=== PATIENT | male | born 1950 | race Caucasian/White ===

== ENCOUNTER → 2023-08-18 19:57 | Outpatient (REF) | payer OTHER, SELFPAY | LOC: MRI 19:57 | PROVIDERS: ATTENDING PHYSICIAN Internal Medicine Critical Care Medicine; FAMILY PHYSICIAN Family Medicine | DX: C79.51 Secondary malignant neoplasm of bone (principal); C34.91 Malignant neoplasm of unspecified part of right bronchus or lung | CPT/HCPCS: 70553; A9575 ==

== ENCOUNTER 2023-08-31 04:52 | Inpatient (IN) | payer OTHER, SELFPAY ==
[2023-08-23 11:54] VITALS: BMI 37.2
[2023-08-23 12:47] LABS: Urine Albumin Negative (Neg - Trace); Urine Bilirubin Negative (Negative); Urine Character Clear (Clear); Urine Color Yellow; Urine Glucose Negative (Negative); Urine Ketone Negative (Negative); Urine Leukocyte Negative (Negative); Urine Nitrite Negative (Negative); Urine Occult Blood Negative (Negative); Urine Urobilinogen Negative (Neg - 1+)
[2023-08-23 12:49] LABS: % Basophils 0.7 % (0-2); % Eosinophils 3.5 % (0-6); % Immature Granulocytes 0.2 % (0-0.5); % Lymphocytes 15.4 % (20.5-51.1); % Monocytes 5.8 % (1.7-9.3); % Neutrophils 74.4 % (42.2-75.2); Absolute Eosinophils 0.2 10^3/uL (0-0.7); Absolute Lymphocytes 0.9 10^3/uL (1.2-3.4); Absolute Monocytes 0.3 10^3/uL (0.1-0.6); Absolute Neutrophils 4.3 10^3/uL (1.4-6.5); Hematocrit 41.1 % (39.0-52.0); Hemoglobin 13.7 g/dL (13.0-18.0); Mean Corp Hgb Conc. 33.3 g/dL (33.0-37.0); Mean Corpuscular Hgb 30.9 pg (27.0-31.0); Mean Corpuscular Volume 92.8 fL (80.0-94.0); Mean Platelet Volume 9.4 fL (7.4-10.4); Nucleated Red Blood Cells % 0 % (-); Platelet Count 267 10^3/uL (130-400); Red Blood Cell Count 4.43 10^6/uL (4.70-6.10); Red Cell Dist. Width 13.2 % (11.5-14.5); White Blood Cell Count 5.7 10^3/uL (4.8-10.8)
[2023-08-23 12:58] LABS: ALT (SGPT) 44 U/L (0-50); AST (SGOT) 36 U/L (17-59); Albumin 4.2 g/dl (3.5-5.0); Alkaline Phosphatase 72 U/L (38-126); Blood Urea Nitrogen 16 mg/dl (9-20); Carbon Dioxide 28 mmol/L (22-30); Chloride 105 mmol/L (98-107); Direct Bilirubin 0.4 mg/dl (0.0-0.4); Estimated Creatinine Clearance 99 ml/min; Glucose 111 mg/dl (70-99); Potassium 4.2 mmol/L (3.5-5.1); Sodium 136 mmol/L (135-145); Total Bilirubin 0.7 mg/dl (0.2-1.3); Total Protein 6.8 g/dl (6.3-8.2); eGFR > 60.00
[2023-08-23 13:01] LABS: INR 0.99; PT 12.9 Sec (11.4-14.6)
[2023-08-23 13:02] LABS: APTT 34.7 Sec (23.4-35.0)
--- NOTE | 2023-08-23 13:15 | CM ---
Met with Mr and Mrs. Marc in [facility]. He states prior to admission he resides with his spouse in a two story home with twelve steps to enter. He states he has a one level living arrangement. He states prior to admission he was independent with
ambulation and adls. He states he does not have any DME in the home. He states he has a prescription plan and uses [facility]. He states his spouse will be home to assist in his care if needed. The discharge plan is to return home with his
spouse and a home visit by the Cardiothoracic Transitional Care Nurse when medically stable.
We reviewed pre-op and post-op routines. We reviewed the shower instructions. He has the soap, written instructions and the Thoracic Surgery Educational Booklet. We also reviewed restrictions including driving and lifting restrictions. We
discussed a home visit by the Cardiothoracic Transitional Care Nurse. He is agreeable to a home visit. The plan is for robotic assisted right lower lobe lobectomy on Tuesday08/31/23.
[2023-08-23 14:07] LABS: Glycohemoglobin (HgbA1c) 5.9 % (4.0-5.6)
[2023-08-31] VITALS (12 sets, daily range): BP systolic 84–163; BP diastolic 46–84; BMI 36.1
--- NOTE | 2023-08-31 06:40 | W.CVOR.SURPR ---
CVOR Surgeon Immed Pre Op
-
I have examined this patient prior to performance of the scheduled procedure.
The patient's condition is unchanged from the time of the dictated/written History and
Physical and the patient is able to undergo the scheduled procedure.
RATS RLL + LN Dissection
--- NOTE | 2023-08-31 07:31 | PTCARENOTE ---
Pt taken to CVOR in bed, SCD machine and monitor sent with patient.
[2023-08-31 08:14] LABS: Urine Albumin Trace (Neg - Trace); Urine Bilirubin Negative (Negative); Urine Character Clear (Clear); Urine Color Yellow; Urine Glucose Negative (Negative); Urine Ketone 1+ (Negative); Urine Leukocyte Negative (Negative); Urine Nitrite Negative (Negative); Urine Occult Blood Negative (Negative); Urine Specific Gravity 1.025 (<1.030); Urine Urobilinogen Negative (Neg - 1+)
--- NOTE | 2023-08-31 10:52 | CM ---
Chart reviewed. Patient is independent of ADLS, lives with his in a 2 STH, 1st floor set up, 12 TORSTEN, 0 DME. Plan is for the patient to return home with CT Transitional RN. CM to follow
--- NOTE | 2023-08-31 11:14 | W.PN.CT.SURG ---
Addendum entered and electronically signed by Dat Adams MD 08/31/23 12:06:
Addendum:
Procedure should read: 2. Radical lymph node dissection
Original Note:
CT Surgery Operative Note
-
THORACIC SURGERY OPERATIVE REPORT
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
Postoperative Diagnosis: Same
Procedure(s) Performed:
1. Robotic assisted thoracic surgery (RATS) right lower lobectomy
2. Chronic lymph node dissection
3. Intercostal nerve block interspaces 4 through 8 with bupivacaine mixture
Date of Surgery: 08/31/2023
Comorbidities:
1. Adenocarcinoma of the right lower lobe
2. Hypertension
3. History of prostate adenocarcinoma, stage II
4. Emphysema
5. Former tobacco abuse, current secondhand smoke from spouse
6. Diverticulosis
7. History of Lyme disease
8. Osteoarthritis
Attending Surgeon: Dat Adams MD, MS
Assistants: Criselda Pimentel PA-C (present and necessary to pier master assistant, exchanging robotic instruments, retraction, suction, exposure, suture management, and wound closure under my direction)
Anesthesiology: Lauri Ramirez MD and Maki Fermin CRNA
Scrub and Circulating RNs: Yousif Domingo RN, Marilin Rodarte RN
Anesthesia: Dual Lumen GETA
EBL: 100 cc
Products: None
Indication(s) for Procedures: This is a 72-year-old male with known right lower lobe mass who underwent screening CT imaging due to history of smoking. The CT findings from August 03 demonstrated a 2.1 x 1.9 x 1.9 cm mass that had increased in
size in the superior aspect of the right lower lobe. Follow-up biopsy demonstrated invasive adenocarcinoma. PET/CT imaging did not show any obvious metachronous lesions. EBUS evaluation of his mediastinum was negative for metastatic disease.
PFTs were acceptable for s low lobectomy. He was counseled for surgery and accepted the risks so we proceeded.
Findings: There are no obvious intra thoracic lesions concerning for metastatic disease. He had well-developed oblique and horizontal fissures. Multiple lymph nodes were sampled from around the hilum. Clamp tests of the right lower lobe bronchus
with test inflation demonstrated unobstructed flow to the right upper and right middle lobes. Saline infiltration and bubble test was negative for any obvious leaks. No pro gel was used in this case. There was good tidal volumes at the conclusion
of the case and only a very minor intermittent air leak while still on the ventilator.
Specimen(s):
Station 9, x 2 nodes
Station 10, x 6 nodes
Station 11, x 4 nodes
Station 2/4 for symptoms of fat packet is no obvious lymph nodes were found or identified
Station 7, x 1 nodes
Right lower lobe
Description of Procedure: The patient was taken to the operating room. Induction via general anesthesia with endotracheal intubation was performed and peripheral venous access and arterial monitoring were inserted. Their identity and procedure to be
performed were verified and they were positioned with the right side up on the operating table. The patient was then prepped and draped in a sterile fashion. A preoperative time-out was performed with all members of the team present. A Veress
needle was used to insufflate the chest after isolating the lung. An 8 mm port was placed in the midaxillary line at approximately the eighth intercostal space and confirmed to be intrathoracic without significant pulmonary injury. The chest was
surveyed for any evidence of metastatic disease. Patient tolerate insufflation without complication. 2 additional 12 mm trocars were placed on either side under camera guidance and a third 8 mm trocar was placed along the back. A 12 mm research lab assistant
port was placed in the 11th intercostal space above the insertion of the diaphragm. An intercostal nerve block was performed at intercostal spaces 4 through 8.
The thoracic cavity was inspected for evidence of metastatic disease. None was observed. We started with mobilization of the inferior pulmonary ligament. We worked our way clockwise dissecting out the hilum and harvest any lymph nodes identified.
The pulmonary arteries and veins leading to the right lower lobe were identified and skeletonized. They were sequentially divided with a white load stapler. The little parenchyma between the RLL and RUL and RLL and RML were divided with green load
jessie. This freed up the hilum leaving just the bronchus which was dissected distally to ensure the branch to the RML was uninvolved in the staple line. The RLL vein was isolated and divided with a white load stapler. The RLL was then elevated
anteriorly leaving just the bronchus. I clamped the bronchus and performed a test inflation which demonstrated unobstructed flow into the remaining right upper and middle lobe. The specimen was displaced toward the apex while a chest tube was
inserted and placed laterally towards the apex. A bubble test was performed to identify any air leaks, none were found so no pro gel was used. The right lower lobe was then placed into a specimen bag and extracted from the chest cavity. After
confirming hemostasis, the lung was fully inflated and all ports were removed. Incisions were closed in 3 layers including the fascia, dermal, and epidermis. Additional local anesthesia was injected into all incision sites. The skin wound was
cleansed and sealed with Dermabond glue.
All instrument, sponge, and needle counts were confirmed to be correct x 2 at the end of the operation. The patient was transferred to the cardiac intensive care unit extubated in critical but stable condition.
I, Dr. Dat Adams, was present, scrubbed for, and performed all critical elements of this procedure.
Dat Adams MD, MS
Cardiothoracic Surgeon
[facility]
This operative dictation was created using the [employer] dictation system. Please excuse any grammatical, typographical, or 'sound alike' errors
[2023-08-31] MEDS: DILAUDID 0.25 MG IV ×2 (11:43→12:00)
[2023-08-31 11:53] LABS: Hematocrit 38.2 % (39.0-52.0); Hemoglobin 12.6 g/dL (13.0-18.0)
[2023-08-31 11:59] LABS: INR 1.07; PT 13.9 Sec (11.4-14.6)
[2023-08-31 12:00] LABS: APTT 31.2 Sec (23.4-35.0)
--- NOTE | 2023-08-31 12:15 | PTCARENOTE ---
Received pt from [employer]. AAO x 3 sitting up in bed. SR on monitor. Room air 98%, pt however feels like he is 'not getting deep enough breaths' 2 L NC placed for comfort. pulse ox 98 - 100%. IS to 750. Rt lateral chest tube intact with
positive air leak noted. Chest tube to - 20 cm suction. No crepitus noted. 4 surgical stab sites c,d,i, well approximated, surgical glue intact. Pulses palpable . RT radial Art line transducing, line removed at this time per CT PA order.
Hemostasis achieved w/ manual pressure. at bedside. will monitor.
--- NOTE | 2023-08-31 13:21 | CON.INTV ---
Consultation
Consultation Request
Date/Time Consultation Requested: 08/31
Date/Time Consultation Performed: 08/31
Reason for Consultation: Postoperative robotic assisted thoracic surgery
Medical History
-
History of Present Illness:
History obtained from the chart, patient and at bedside. Outpatient records also reviewed. Pleasant 72-year-old male with history of prostate cancer 2020 status post radiation and Lupron therapy, presents with CT chest abnormality. Patient
does have chronic bronchitic symptoms. Bronchoscopy 07/27/2023 revealed invasive adenocarcinoma, moderately differentiated. No enlarged lymph nodes were identified. Workup revealed normal lung function, no evidence of extrapulmonary or adenopathy
abnormality on the PET scan, normal brain MRI. Patient underwent robotic assisted thoracic resection of right lower lobe 08/31/2023 without complication.
Presently patient is conversant, mild chest tube discomfort but otherwise without nausea, abdominal pain, shortness of breath. at bedside.
.
PMH: Emphysema, chronic bronchitis, prostate cancer diagnosed 2020, hypertension. History of left knee surgery 1967
Past Medical History
Past Medical History: None (See above)
Past Surgical History: None (See above)
Social History
Tobacco: Former Smoker (Quit at age 46, 19-lzgq-mixr history.)
Alcohol: Occasional
Drug: None
Personal:
Living: With Family
Employment: Retired (Office work)
Environmental Exposures: Born in [place], also lived in [place] and [place]
Family History
Family History: Other (Brother from carbon monoxide poisoning. Brother from gunshot wound/suicide. Mother from heart disease age 90, father from heart failure/emphysema age 69. No children)
Allergies / Home Medications
Allergies
Allergy/AdvReac Type Severity Reaction Status Date / Time
No Known Allergies Allergy Verified 08/31/23 05:08
Home Medications
Medication Instructions Recorded Confirmed Last Taken Type
amlodipine 5 mg tablet 5 mg PO DAILY 07/25/23 08/31/23 08/30/23 09:00 History
budesonide-formoterol HFA 160 2 puff inhalation BID 07/25/23 08/31/23 08/30/23 21:00 History
mcg-4.5 mcg/actuation aerosol
inhaler (Symbicort)
leuprolide acetate (6 month) 45 mg 45 mg IM [id number] 07/25/23 08/31/23 08/19/23 History
intramuscular syringe kit (Lupron
Depot)
lisinopril 20 mg tablet 20 mg PO DAILY 07/25/23 08/31/23 08/30/23 09:00 History
zinc 4 mg PO DAILY 07/25/23 08/31/23 08/30/23 09:00 History
Review of Systems
-
All other systems: Negative unless noted
Vitals / Labs / Diagnostic Testing
Vital Signs
Temp Pulse Resp BP Pulse Ox
98.2 F 77 14 108/60 98
08/31/23 12:59 08/31/23 12:59 08/31/23 12:59 08/31/23 12:00 08/31/23 13:01
Lab Data
08/31/23 11:47
08/23/23 12:12
Laboratory Results
08/31/23
11:47
PT 13.9
INR 1.07
APTT 31.2
Diagnostic Testing:
Physical Exam
-
HEENT: Normocephalic, Anicteric and Other (A-line, chest tube)
Cardiovascular: S1/S2, Regular Rhythm, Murmur (n), Peripheral Edema (n) and Calf Tenderness (n)
Respiratory: Wheeze (n), Rales (n), Rhonchi (n), Non-Labored Respirations and Other (Decreased, mild splinting)
GI: Soft, Non Distended and Non Tender
Neurology: Awake, Alert and No Motor Deficits (Moves all extremities)
Skin: Good Color (No clubbing, cyanosis)
General: Comfortable
Assessment
-
72-year-old male with 18-irsv-fmbq history of smoking, quit 1997, mild emphysema per imaging, identified as having 2.1 cm right lower lobe nodule, increased when compared to 02/12/2022. Bronchoscopy confirmed invasive adenocarcinoma. Workup
confirmed clinical stage I. Patient's status post robotic assisted thoracic resection of right lower lobe with lymph node dissection 08/31/2023
S/p RATS, RLL, LN resection
08/31/2023
2.1 cm right lower lobe nodule
Invasive adenocarcinoma, moderately differentiated
Initially identified February 2022 (slow growth)
Clinical stage IA ([id number])
07-owbq-ghwx history of smoking, quit 1997
Hypertension
Suspected sleep apnea
Mild emphysema per CT imaging
Multiple nodules
3 mm left lower lobe nodule, 4 mm right upper lobe nodule (stable compared to 02/23/2021)
History of prostate cancer 2020
Radiation/Lupron therapy
PSA levels normal
Plan/recommendations
At this time, patient appears to be comfortable. Chest tube with respiratory variation, minimal drainage, no airleak
Postoperative chest x-ray unremarkable
Chest exam with mild splinting on exam
Reviewed surgical postoperative report. Multiple lymph nodes resected
Moving forward
Continue with management per CT surgery
Follow hemoglobin
Await pathology
Pain control, incentive spirometry
Antibiotics per protocol
Patient on outpatient Symbicort therapy, this will continue for now
Resume outpatient antihypertensive therapy
DVT prophylaxis: Mechanical prophylaxis
Patient does have appointment with oncology as outpatient in the next few weeks. Encouraged follow-up (Faviola)
Reviewed with patient, at bedside
All questions answered
Will follow
[2023-08-31] MEDS: SENOKOT-S PO (13:37)
[2023-08-31] MEDS: NEURONTIN PO (13:37)
[2023-08-31] MEDS: TORADOL IV (13:37)
[2023-08-31] MEDS: STERILE WATER FOR INJECTION 16 ML IV ×2 (14:29)
[2023-08-31] MEDS: ZINACEF 1500 MG IV (14:37)
[2023-08-31] MEDS: STERILE WATER FOR INJECTION 8.30000000000000071 ML IV ×2 (15:07→23:26)
[2023-08-31] MEDS: ZINACEF 750 MG IV ×2 (15:07→23:26)
[2023-08-31] MEDS: NEURONTIN 300 MG PO ×2 (15:07→20:01)
--- NOTE | 2023-08-31 15:55 | PTCARENOTE ---
Assist x 1 oob , ambulated to bathroom, Able to void large amount of urine in toilet, small amount of blood noted with initial void. Air leak remains.Denies pain. Will continue to monitor.
[2023-08-31] MEDS: TORADOL 15 MG IV ×2 (17:06→23:27)
[2023-08-31] MEDS: HEPARIN 5000 UNITS SC (20:00)
[2023-08-31] MEDS: SENOKOT-S 1 TABLET PO (20:01)
[2023-08-31] MEDS: SYMBICORT 160/4.5 MCG INHALER 2 PUFF INH (20:16)
[2023-09-01] VITALS (12 sets, daily range): BP systolic 110–167; BP diastolic 62–91; BMI 36.9
--- NOTE | 2023-09-01 05:17 | W.PN.CT ---
Today's Communication / Plan
-
-pod #1
-no issues overnight
-R pleur CT with +1 air leak with deep breaths or cough last night. This am noted air leak with cough only (no air leak noted during sleep with regular breathing), output 140/415 serosang., on -20 sxn
-follow daily CXR
-current meds (Lisinopril, Norvasc). Pain control with Neurontin, iv Toradol, prn Tylenol/Val/Dilaudid
-DVT prophylaxis with sq Heparin
-encourage IS, OOB
Assessment / Plan
-
- Invasive adenocarcinoma of the right lower lobe- s/p Robotic assisted thoracic surgery (RATS) right lower lobectomy and radical lymph node dissection on 08/31/[address] Adams, pod #1
-no obvious intra thoracic lesions concerning for metastatic disease.�
- Hypertension
- History of prostate adenocarcinoma, stage II
- Emphysema
- Former tobacco abuse, quit 1996, current secondhand smoke from spouse
- Pre-diabetes (HgA1c 5.9)
- Diverticulosis
- History of Lyme disease
- Osteoarthritis
- Acute postop blood loss anemia
- Acute postop atelectasis
Discussed patient care with: Nursing and Care Team
Subjective
Procedure
s/p Robotic assisted thoracic surgery (RATS) right lower lobectomy and radical lymph node dissection on 08/31/[address] Adams
-
Date of Service: September 01, 2023
Objective Data
-
PT 13.9 Sec (11.4-14.6) 08/31/23 11:47
INR 1.07 08/31/23 11:47
APTT 31.2 Sec (23.4-35.0) 08/31/23 11:47
Vital Signs
Vital Signs
Temp Pulse Resp BP Pulse Ox
98 F 81 18 130/64 98
08/31/23 20:00 08/31/23 21:30 08/31/23 20:19 08/31/23 20:08 08/31/23 15:31
CT Intake/Output/Weight
08/31/23 08/31/23 09/01/23
06:59 18:59 06:59
Intake Total 580 / 580
Output Total 275 / 675 400 / 675
Balance 305 / -95 -400 / -95
SaO2: 98
Physical Exam
-
General: Awake and AOx3
Cardiovascular: Regular rate & rhythm, No Murmurs and No Rub
Respiratory: Decreased Breath Sounds
Incision: Clean, Dry and Dressing Intact
Extremities: Other (trace edema b/l, 2+ DP b/l)
Abdomen: soft, nontender, nondistended, decreased bowel sounds
Data Reviewed
-
Lab Results: Results Reviewed
Medications: Active Meds Reviewed
Chest X-Ray: Report Reviewed and Image Reviewed
ECG: Report Reviewed and Image Reviewed
[2023-09-01 06:14] LABS: Hematocrit 36.8 % (39.0-52.0); Hemoglobin 12.2 g/dL (13.0-18.0); Mean Corp Hgb Conc. 33.2 g/dL (33.0-37.0); Mean Corpuscular Hgb 30.7 pg (27.0-31.0); Mean Corpuscular Volume 92.7 fL (80.0-94.0); Mean Platelet Volume 9.2 fL (7.4-10.4); Platelet Count 254 10^3/uL (130-400); Red Blood Cell Count 3.97 10^6/uL (4.70-6.10); Red Cell Dist. Width 13.3 % (11.5-14.5); White Blood Cell Count 14.2 10^3/uL (4.8-10.8)
[2023-09-01] MEDS: ZINACEF 750 MG IV (06:17)
[2023-09-01] MEDS: TORADOL 15 MG IV (06:17)
[2023-09-01] MEDS: STERILE WATER FOR INJECTION 8.30000000000000071 ML IV (06:17)
[2023-09-01 06:46] LABS: Blood Urea Nitrogen 19 mg/dl (9-20); Calcium 8.4 mg/dl (8.4-10.2); Carbon Dioxide 22 mmol/L (22-30); Chloride 107 mmol/L (98-107); Estimated Creatinine Clearance 86 ml/min; Glucose 119 mg/dl (70-99); Potassium 4.3 mmol/L (3.5-5.1); Sodium 134 mmol/L (135-145); eGFR > 60.00
--- NOTE | 2023-09-01 07:23 | PTCARENOTE ---
Assumed care of patient from retail shift supervisor RN. AAO x 3 sitting up in the chair. SR on monitor. Room air. Rt chest tube to water seal. Surgical sites c,d,i. Will monitor.
--- NOTE | 2023-09-01 07:38 | W.PN.INTV ---
Today's Communication / Plan
Recommendations
Continue with pain control
Chest tube management per CT surgery
Mechanical DVT prophylaxis
Pathology pending
Follow-up with oncology in the next few weeks
Pulmonary follow-up recommendations left in chart
We will sign off. Please call with questions
Assessment
-
72-year-old male with 27-falj-nejq history of smoking, quit 1997, mild emphysema per imaging, identified as having 2.1 cm right lower lobe nodule, increased when compared to 02/12/2022. Bronchoscopy confirmed invasive adenocarcinoma. Workup
confirmed clinical stage I. Patient's status post robotic assisted thoracic resection of right lower lobe with lymph node dissection 08/31/2023
S/p RATS, RLL, LN resection
08/31/2023
2.1 cm right lower lobe nodule
Invasive adenocarcinoma, moderately differentiated
Initially identified February 2022 (slow growth)
Clinical stage IA ([id number])
72-rwqs-kotz history of smoking, quit 1997
Hypertension
Suspected sleep apnea
Mild emphysema per CT imaging
Multiple nodules
3 mm left lower lobe nodule, 4 mm right upper lobe nodule (stable compared to 02/23/2021)
History of prostate cancer 2020
Radiation/Lupron therapy
PSA levels normal
Plan/recommendations
At this time, patient appears to be comfortable. Chest tube with respiratory variation, minimal drainage, no airleak
chest tube drainage over 24 hours for 65
Chest x-ray today with no pneumothorax per my review
Reviewed surgical postoperative report. Multiple lymph nodes resected, path pending
Moving forward
Continue with management per CT surgery
Follow hemoglobin, stable
Await pathology
Pain control, incentive spirometry
Antibiotics per protocol
Patient on outpatient Symbicort therapy, this will continue for now
DVT prophylaxis: Mechanical prophylaxis
Patient does have appointment with oncology as outpatient in the next few weeks. Encouraged follow-up (Faviola)
Reviewed with patient
Recommend pulmonary follow-up in 3 months
I will follow peripherally, otherwise will sign off. Please call with any questions
Subjective Dataa
Subjective Data
Date of Service:
Date of Service: September 01, 2023
Subjective:
Patient feels excellent. Sitting in chair. Has mild chest tube discomfort but otherwise denies nausea, abdominal pain, shortness of breath. On room air.
Objective Data
Data Reviewed
Vital Signs / I&O / Oxygen:
Vital Signs
Temp Pulse Resp BP Pulse Ox
98.7 F 79 18 143/71 95
09/01/23 04:00 09/01/23 07:00 08/31/23 20:19 09/01/23 06:04 09/01/23 06:45
Intake and Output
08/31/23 09/01/23 09/02/23
06:59 06:59 06:59
Intake Total 580 / 580
Output Total 1165 / 1165
Balance -585 / -585
SaO2 95
Nasal Cannula flow liters per 2
minute
Physical Exam
General: Comfortable
HEENT: Normocephalic and Anicteric
Cardiovascular: S1-S2, Regular Rhythm, Murmur (n), Rub (n), Peripheral Edema (n) and Calf Tenderness (n)
Respiratory: Wheeze (n), Crackles (n), Rhonchi (n), Non-Labored Respirations and Chest Tube (Respiratory variation, no leak)
GI: Soft, Non Distended and Non Tender
Neurology: Awake, Alert and No Motor Deficits
Skin: Cyanosis (n), Jaundice (n) and Rash (n)
Labs/Micro/Reports
Lab Data
09/01/23 05:57
09/01/23 05:57
Laboratory Results
08/31/23
11:47
PT 13.9
INR 1.07
APTT 31.2
[2023-09-01] MEDS: HEPARIN 5000 UNITS SC ×2 (07:51→21:41)
[2023-09-01] MEDS: NEURONTIN 300 MG PO ×3 (07:51→21:40)
[2023-09-01] MEDS: ZESTRIL 20 MG PO (07:51)
[2023-09-01] MEDS: NORVASC 5 MG PO (07:52)
[2023-09-01] MEDS: SYMBICORT 160/4.5 MCG INHALER 2 PUFF INH ×2 (08:01→20:15)
[2023-09-01] MEDS: SENOKOT-S PO (08:41)
[2023-09-01] MEDS: LASIX 40 MG IV (09:07)
--- NOTE | 2023-09-01 09:22 | PTCARENOTE ---
Ambulated in hallway with RN, Some dyspnea on exertion but recouped w/o intervention. IV lasix administered.
--- NOTE | 2023-09-01 11:31 | CM ---
Chart reviewed. Patient is independent of ADLS, lives with his in a 2 STH, 12 TORSTEN, 1st floor set up, 0 DME. Plan is for the patient to return home with CT Transitional RN. CM to follow
--- NOTE | 2023-09-01 11:58 | PTCARENOTE ---
Sitting up in chair, visiting with . Denies pain or other complaint. VSS, minimal output from chest tubes. Voiding w/o issue in toilet. Assessment unchanged from prior.
--- NOTE | 2023-09-01 16:00 | PTCARENOTE ---
Received pt from [facility]; pt resting comfortably in chair, at bedside; pt complains of 2/10 pain, see MAR; pt is AAOX3; NSR on monitor, VSS; heart sounds audible, radial and DP pulses palpable, trace JUINOR; lung sounds diminished on right side,
otherwise lung sounds CTA, x1 right lateral pleural CT to water-seal, tidaling present, +air leak with cough, no crepitus; +bs x4 quadrants, abdomen soft non tender; pt voiding clear yellow urine; surgical sites stable, no drainage noted; right and
left PIV maintained; call valdez within reach; will continue to monitor.
[2023-09-01] MEDS: SENOKOT-S 1 TABLET PO (19:26)
--- NOTE | 2023-09-01 20:30 | PTCARENOTE ---
Assumed care of patient at 1900. Patient found OOB in chair at time of assessment with spouse at bedside. Patient is AOx4, follows commands appropriately, moves all extremities. Lung sounds are diminished on the right throughout, patient is on RA
with saO2 at 98%. Patient has a R pleural CT draining serosanguineous to atrium with water seal. Tidaling noted in the atrium with respirations no air leak can be observed and no crepitus felt on assessment. HS have a regular rate and rhythm and
patient is SR on the monitor. Normal palpable radial and dorsalis pedis pulses are present. There is some trace BLE edema noted. Patient has active BS throughout all four quadrants no BM reported postop at this time. Patient is voiding clear yellow
in the restroom. Patient has R chest incision that is approx with surg adhesive and RESPIRATORY SUPERVISOR. There is a tegaderm dressing and 4x4 sterile gauze present over CT wound site that has some old drainage but otherwise intact. Patient has a R 18G PIV and L 20G
PIV available for intermittent infusion. VSS. Patient has no complaints at this time.
[2023-09-01] MEDS: TYLENOL 650 MG PO (22:58)
[2023-09-02] VITALS (7 sets, daily range): BP systolic 135–148; BP diastolic 69–84; BMI 36.9
--- NOTE | 2023-09-02 00:30 | PTCARENOTE ---
Patient reassessed. VSS. Remains in SR on the monitor. Patient c/o mild pain and discomfort around the L pleural CT site. Administered tylenol for pain upon reassessment patient was sleeping. Patient is stable.
[2023-09-02 04:12] LABS: Hematocrit 35.9 % (39.0-52.0); Mean Corp Hgb Conc. 33.4 g/dL (33.0-37.0); Mean Corpuscular Hgb 30.4 pg (27.0-31.0); Mean Corpuscular Volume 90.9 fL (80.0-94.0); Mean Platelet Volume 9.5 fL (7.4-10.4); Platelet Count 242 10^3/uL (130-400); Red Blood Cell Count 3.95 10^6/uL (4.70-6.10); Red Cell Dist. Width 13.6 % (11.5-14.5); White Blood Cell Count 10.7 10^3/uL (4.8-10.8)
[2023-09-02 04:28] LABS: Blood Urea Nitrogen 30 mg/dl (9-20); Calcium 8.7 mg/dl (8.4-10.2); Carbon Dioxide 26 mmol/L (22-30); Chloride 106 mmol/L (98-107); Estimated Creatinine Clearance 87 ml/min; Glucose 117 mg/dl (70-99); Sodium 138 mmol/L (135-145); eGFR > 60.00
--- NOTE | 2023-09-02 05:00 | W.PN.CT ---
Today's Communication / Plan
-
-pod #2
-brief 10 beat SVT, asymptomatic
-R pleur CT on water seal since 6:30 am 09/01. Follow-up CXR 09/01 was stable, no ptx
-follow am CXR
-CT output 140/175 serosang. fluid in 12/24 hrs. No air leak noted with cough, talking, deep breaths or during sleep
-continue current meds
-encourage IS, OOB, ambulate
Assessment / Plan
-
- Invasive adenocarcinoma of the right lower lobe- s/p Robotic assisted thoracic surgery (RATS) right lower lobectomy and radical lymph node dissection on 08/31/[address] Adams, pod #2
-no obvious intra thoracic lesions concerning for metastatic disease.�
- Hypertension
- History of prostate adenocarcinoma, stage II
- Emphysema
- Former tobacco abuse, quit 1996, current secondhand smoke from spouse
- Pre-diabetes (HgA1c 5.9)
- Diverticulosis
- History of Lyme disease
- Osteoarthritis
- Acute postop blood loss anemia
- Acute postop atelectasis
Discussed patient care with: Nursing
Subjective
Procedure
s/p Robotic assisted thoracic surgery (RATS) right lower lobectomy and radical lymph node dissection on 08/31/[address] Adams
-
Date of Service: September 02, 2023
Objective Data
-
PT 13.9 Sec (11.4-14.6) 08/31/23 11:47
INR 1.07 08/31/23 11:47
APTT 31.2 Sec (23.4-35.0) 08/31/23 11:47
Vital Signs
Vital Signs
Temp Pulse Resp BP Pulse Ox
98 F 90 18 151/79 95
09/01/23 23:00 09/01/23 23:00 09/01/23 23:00 09/01/23 23:00 09/01/23 23:00
CT Intake/Output/Weight
09/01/23 09/01/23 09/02/23
06:59 18:59 06:59
Intake Total 720 / 720
Output Total 890 / 1165 35 / 155 120 / 155
Balance -890 / -585 685 / 565 -120 / 565
SaO2: 95
Physical Exam
-
General: Awake and AOx3
Cardiovascular: Regular rate & rhythm, No Murmurs and No Rub
Respiratory: Decreased Breath Sounds
Incision: Clean, Dry and Dressing Intact
Abdomen: soft, nontender, nondistended, decreased bowel sounds
Extremities: Other (trace edema b/l, 2+ DP b/l)
Data Reviewed
-
Lab Results: Results Reviewed
Medications: Active Meds Reviewed
Chest X-Ray: Report Reviewed
ECG: Report Reviewed and Image Reviewed
--- NOTE | 2023-09-02 06:22 | PTCARENOTE ---
Patient reassessed. VSS. AM labs obtained. Patient is stable.
[2023-09-02] MEDS: SYMBICORT 160/4.5 MCG INHALER 2 PUFF INH (07:23)
--- NOTE | 2023-09-02 07:45 | PTCARENOTE ---
Assumed care of patient. Walking rounds completed with previous RN. Pt assessed while he was sitting in the chair. Pt alert and oriented x4. Pt rates right latera chest pain 2/10-see MAR. Denies shortness of breath & nausea. FOY with equal strength
throughout. Independent in the room. NSR on tele with occasional PVCs with rates in the 80s. BP stable 143/84. Bilateral radial and DP pulses palpable. Trace edema in b/l lower extremities. POX 94% on RA. Lungs diminished R>L. No cough noted. IS
encouraged-750mL achieved. Right lateral chest tube clamped per PA. No air leak, crepitus noted. Abdomen soft, round, obese, nonender. +BS. Pt reports passing gas. Pt voiding independently in the toilet-reports no concerns. Right lateral incision
approximated DOMO with skin glue. Right hand and left hand PIVs intact. See MAR for medication administration. See worklist for complete nursing assessment. Plan of care reviewed and patient in agreement.
[2023-09-02] MEDS: TYLENOL 650 MG PO (07:54)
[2023-09-02] MEDS: NEURONTIN 300 MG PO (07:54)
[2023-09-02] MEDS: NORVASC 5 MG PO (07:54)
[2023-09-02] MEDS: LASIX 40 MG PO (07:54)
[2023-09-02] MEDS: SENOKOT-S 1 TABLET PO (07:54)
[2023-09-02] MEDS: ZESTRIL 20 MG PO (07:54)
[2023-09-02] MEDS: HEPARIN 5000 UNITS SC (07:54)
[2023-09-02] MEDS: FLUSH (NSS) 1 FLUSH IV (07:55)
--- NOTE | 2023-09-02 09:31 | W.DCSUMMARY ---
Discharge Summary
Discharge Data
Date of Admission: 08/31/23
Date of Discharge: 09/02/23
-
Pending Results: No
Hospital Course
Primary care physician: Ronni Frias
Outpatient integrated logistics programs director: Rajani Botello
Inpatient consultants: none
Procedures:
1. Robotic assist right lower lobe lobectomy, radical lymph node dissection
Primary Diagnosis:
1. Adenocarcinoma of the lung- right lower lobe
Secondary Diagnoses:
1. Hypertension
2. COPD
3. Lyme's disease in 1999
4. Prostate cancer
5. Prediabetes (hemoglobin A1c 5.9)
HPI: Jose L Marc is a 72-year-old male electively admitted on 08/31/2023 for right lower lobe lobectomy and radical lymph node dissection
Hospital course: Mr. Marc underwent robotic assisted right lower lobe lobectomy and radical lymph node dissection with Dr. Adams. Patient was extubated in the operating room recovered. Patient had intermittent air leak and was maintained on -20
cm of suction overnight. Postoperative day #1 chest tube was placed on water seal follow-up x-ray reported no pneumo thorax. On postoperative day #3 the chest tube was clamped at 6:30 AM and follow-up chest x-ray at 10:30 AM reported no
pneumothorax. Right pleural chest drain removed without difficulty and follow-up CXR without PTX. Patient is stable for DC to home with instructions to obtain CXR in 1 week.
Home medication changes:
Gabapentin for nerve pain on DC
Discharge Plan
-
Patient Disposition: Home (Routine Discharge)
Discharge Diagnosis/Procedures: RA RLL lobectomy, radical lymph node dissection
Condition: Fair
Diet: Low Cholesterol and Low Sodium
Activity: No strenuous activity
Driving Restrictions: No driving for 1 week
Bathing Restrictions: OK to Shower
Others Tests: CXR in 1 week
Specialty Instructions: Weigh Daily- Call MD for wt gain/loss 3 lbs overnight/5 lbs in 1 week
Referrals:
CT Transitional Care Nurse [Outside] (The [facility] Nurse will call you to set up a visit in 1-2 days.)
Rajani Botello MD [Active] - (3 mo)
Jonathan Frias MD [Family Provider] -
Dat Adams MD [Active] - 09/15/23 2:30 pm
Prescriptions:
New
acetaminophen 325 mg Tablet
650 mg PO Q6HPRN PRN (Reason: temp >102 F and/or mild pain) Qty: 7 0RF
gabapentin 300 mg Capsule
100 mg PO TID Qty: 30 0RF
Continued
lisinopril 20 mg Tablet
20 mg PO DAILY
amlodipine 5 mg Tablet
5 mg PO DAILY
budesonide-formoterol [Symbicort] 160-4.5 mcg/actuation Hfa Aerosol Inhaler
2 puff INHALATION BID
Lupron Depot (6 Month) 45 mg Syringe Kit
45 mg IM [id number]
Rx Instructions:
NEXT DOSE: 08/19/2023
zinc
4 mg PO DAILY
Rx Instructions:
gummy
Discharge Orders:
Discharge Patient (As Directed); Ordered 09/02/23
Ordered By: Telma Correia
Care Plan Goals
Care Plan Goals:
Problem: Readiness for enhanced knowledge related to diagnosis and treatment plan
Goal: Understand your diagnosis and treatment plan needs, including medications if applicable.
Instructions: Know your diagnosis, underlying causes and treatment plan options, including medications if applicable. Consult with your health care team to learn about your diagnosis and treatment plan, including medications if applicable.
--- NOTE | 2023-09-02 11:15 | PTCARENOTE ---
Clamped CXR completed. [facility] [employer] at bedside to unclamp chest tube. Pt tolerated. 20ml drainage. Pt ambulated in the de guzman 480', additional 10ml drainage with ambulation. CT [employer] notified. [facility] [employer] at bedside to d/c Chest tube. suture tied. Dressing applied.
Pt tolerated. Post CXR obtained.
[2023-09-02] MEDS: LOPRESSOR 12.5 MG PO (11:55)
--- NOTE | 2023-09-02 11:57 | PTCARENOTE ---
Pt reassessed. VSS. Denies pain. no acute changes.
--- NOTE | 2023-09-02 13:55 | PTCARENOTE ---
Pt stable prior to discharge. Discharge order written. PIVs d/c. Tele d/c. Discharge instructions and medications reviewed with patient and patient's . All questions clarified.
== END 2023-09-02 14:47 | disposition home or self-care (01) | DRG 164 ==
LOC: CVICU 04:52
PROVIDERS: Anesthesiology; Physician Assistant Medical; ADMITTING PHYSICIAN Thoracic Surgery (Cardiothoracic Vascular Surgery); CONSULT PHYSICIAN Internal Medicine Critical Care Medicine; FAMILY PHYSICIAN Family Medicine
PROC: 0BTF4ZZ Resection of Right Lower Lung Lobe, Percutaneous Endoscopic Approach (ICD-10-PCS; 2023-08-31)
PROC: 07B74ZX Excision of Thorax Lymphatic, Percutaneous Endoscopic Approach, Diagnostic (ICD-10-PCS; 2023-08-31)
PROC: 8E0W4CZ Robotic Assisted Procedure of Trunk Region, Percutaneous Endoscopic Approach (ICD-10-PCS; 2023-08-31)
PROC: 3E0T3BZ Introduction of Anesthetic Agent into Peripheral Nerves and Plexi, Percutaneous Approach (ICD-10-PCS; 2023-08-31)
DX: C34.31 Malignant neoplasm of lower lobe, right bronchus or lung (principal); D62 Acute posthemorrhagic anemia; J98.11 Atelectasis; I10 Essential (primary) hypertension; J43.9 Emphysema, unspecified; K57.90 Diverticulosis of intestine, part unspecified, without perforation or abscess without bleeding; R73.03 Prediabetes; Z85.46 Personal history of malignant neoplasm of prostate; Z87.891 Personal history of nicotine dependence
CPT/HCPCS: 88305; 88309; 32505; 36415; 71045; 80048; 80053; 81003; 82248; 83036; 85014; 85018; 85025; 85027; 85610; 85730; 86850; 86900; 86901; 86920; 87070; 88313; 88341; 88342; 88360; 93005; 93880; 94640

== ENCOUNTER → 2023-09-09 11:22 | Outpatient (REF) | payer OTHER, SELFPAY | LOC: HWRAD 11:22 | PROVIDERS: ATTENDING PHYSICIAN Thoracic Surgery (Cardiothoracic Vascular Surgery); FAMILY PHYSICIAN Family Medicine | DX: Z90.2 Acquired absence of lung [part of] (principal) | CPT/HCPCS: 71046 ==

== ENCOUNTER → 2023-09-19 08:10 | Outpatient (REF) | payer OTHER, SELFPAY ==
[2023-09-19 08:21] VITALS: BP 148/82; BP_SYST 90
[2023-09-19 09:04] VITALS: BP 147/89
== END ==
LOC: RADI 08:10
PROVIDERS: ATTENDING PHYSICIAN Thoracic Surgery (Cardiothoracic Vascular Surgery)
DX: J90 Pleural effusion, not elsewhere classified (principal)
CPT/HCPCS: 32555; 71045

== ENCOUNTER → 2023-09-26 13:32 | Outpatient (REF) | payer OTHER, SELFPAY | LOC: HWRAD 13:32 | PROVIDERS: ATTENDING PHYSICIAN Thoracic Surgery (Cardiothoracic Vascular Surgery); FAMILY PHYSICIAN Family Medicine | DX: J90 Pleural effusion, not elsewhere classified (principal) | CPT/HCPCS: 71046 ==

== ENCOUNTER → 2024-02-13 12:12 | Outpatient (REF) | payer OTHER, SELFPAY | LOC: HWRAD 12:12 | PROVIDERS: ATTENDING PHYSICIAN Internal Medicine Critical Care Medicine; FAMILY PHYSICIAN Family Medicine; REFERRING PHYSICIAN Internal Medicine Hematology & Oncology | DX: C34.91 Malignant neoplasm of unspecified part of right bronchus or lung (principal) | CPT/HCPCS: 71250 ==

== ENCOUNTER → 2024-08-21 12:18 | Outpatient (REF) | payer OTHER, SELFPAY | LOC: HWRAD 12:18 | PROVIDERS: ATTENDING PHYSICIAN Internal Medicine Critical Care Medicine; FAMILY PHYSICIAN Family Medicine | DX: R91.8 Other nonspecific abnormal finding of lung field (principal) | CPT/HCPCS: 71250 ==

== ENCOUNTER → 2025-03-18 12:35 | Outpatient (REF) | payer OTHER, SELFPAY | LOC: HWRAD 12:35 | PROVIDERS: ATTENDING PHYSICIAN Internal Medicine Critical Care Medicine; FAMILY PHYSICIAN Family Medicine | DX: C34.91 Malignant neoplasm of unspecified part of right bronchus or lung (principal) | CPT/HCPCS: 71250 ==